=== PATIENT | female | born 2000 | race Caucasian/White ===

== ENCOUNTER 2020-02-13 12:24 | Emergency (ER) | payer OTHER ==
[~2020-02-13] VITALS: Ht 180.3 cm; Wt 81.8 kg
[2020-02-13 13:09] VITALS: TEMP 97.2
[2020-02-13 13:55] LABS: BASO % 0.3 % (0.0-2.0); EOS # 0.1 (0.0-0.7); EOS % 1.1 % (0-4.0); GRAN # 4.7 (1.4-6.5); GRAN % 61.9 % (42.2-75.2); HEMATOCRIT 45.8 % (37.0-47.0); HEMOGLOBIN 15.2 g/dl (12.5-16.0); LYMPH # 2.2 (1.2-3.4); LYMPH % 28.9 % (20.0-51.0); MEAN CELL VOLUME 88 fl (80.0-100.0); MEAN CORPUSCULAR HEMOGLOBIN 29 pg (27.0-31.0); MEAN CORPUSCULAR HGB CONC 33 g/dl (33.0-37.0); MEAN PLATELET VOLUME 10.1 fl (7.4-10.4); MONO # 0.6 (0.1-0.6); MONO % 7.4 % (1.7-9.3); PLATELET COUNT 293 K/mm3 (130-400); RED BLOOD COUNT 5.19 M/mm3 (4.10-5.30)
[2020-02-13 14:05] LABS: ALBUMIN 4.9 gm/dL (3.5-5.0); BILIRUBIN,TOTAL 0.7 mg/dL (0.0-1.0); CALCIUM 9.6 mg/dL (8.4-10.2); CREATININE, serum 0.94 (0.52-1.25); POTASSIUM 4.5 mmol/L (3.4-5.0); TOTAL PROTEIN 8.3 gm/dL (6.4-8.2)
[2020-02-13] MEDS ORDERED: PREDNISONE20 MG PO (14:18)
[2020-02-13] MEDS ORDERED: ALBUTEROL0.83 MG/ML IH (14:20)
[2020-02-13] MEDS ORDERED: TESSALON PERLE200 MG PO (14:20)
[2020-02-13] MEDS ORDERED: NEB MC (14:20)
[2020-02-13 15:04] VITALS: BP 127/79; PULSE 83
== END 2020-02-13 15:05 | disposition home or self-care (01) ==
LOC: COL.ER 12:24
PROVIDERS: Physician Assistant
DX: J45.901 Unspecified asthma with (acute) exacerbation (principal); J20.9 Acute bronchitis, unspecified; U07.1 COVID-19; Z32.02 Encounter for pregnancy test, result negative; Z79.51 Long term (current) use of inhaled steroids
CPT/HCPCS: J1100; J2405; J7030